=== PATIENT | female | born 1980 | race Caucasian/White ===

== ENCOUNTER → 2016-10-30 | Outpatient (CLI) | payer BC | END | disposition home or self-care (01) | LOC: C.PAPS 10:21 | PROVIDERS: ATTEND Physician Assistant | DX: Z01.419 Encounter for gynecological examination (general) (routine) without abnormal findings (principal) ==

== ENCOUNTER 2023-02-26 05:33 | Inpatient (IN) ==
--- NOTE | 2023-02-20 12:46 | Anesthesiology Consultation ---
Date of Service February 20, 2023 Assessment & Plan (1) Encounter for pre-operative examination: Plan - Per auto transport driver on 02/20/2023: No known infectious disease contacts, current infectious disease symptoms in past 10 days or COVID positive test result in the past 90 days. Chart Review Chart Review: customer support engineer initiated History Surgery Operation Date: 02/26/23 07:30 Proposed Procedures p Section (Delivery of Baby Through Abdominal Incision) - Eva Abad MD, FACOG Height/Weight Height: 5 ft 4 in Weight: 69.853 kg Allergies Allergy/AdvReac Type Severity Reaction Status Date / Time Penicillins Allergy Unknown Unknown Verified 02/26/23 05:52 Medications Home Medications Medication Instructions Recorded Confirmed Last Taken prenat.vits,nikole,sfs-hsij-vwxxv 1 tab PO DAILY 08/09/22 02/26/23 02/25/23 08:00 aspirin 81 mg tablet 81 mg PO DAILY 02/26/23 02/26/23 02/25/23 08:00 docusate sodium 50 mg capsule 50 mg PO BID 02/26/23 02/26/23 02/25/23 08:00 Past Medical History Medical History History of asthma in her mid-20's, no current issues Regurgitation of food had been under control last year, 2021, but recently within last month or 2, it has been happening again Past Family History Family History Mother Anxiety Depression Glaucoma Asthma Thyroid disease Fibroid Aunt Malignant neoplasm of brain Aunt Breast cancer Maternal Aunt Breast cancer Paternal Grandfather No problems noted. Grandfather (Maternal) Myocardial infarction Father Hypertension Osteoarthritis Brother No problems noted. Sister Tumor pelvic mass Denies family history of Ovarian cancer Prostate cancer Colorectal cancer Past Surgical History Surgical History No history of previous surgery Social History Smoking Status: Never smoker Do You Dip or Chew Tobacco: No Hx Alcohol Use: Yes Alcohol type: beer, wine and hard liquor alcohol intake frequency: other Alcohol Intake Frequency Comment: not while ; twice weekly prior to Hx Substance Use: No substance use type: does not use Physical Exam Vital Signs Last Vital Signs Temp 37.6 C H 02/26/23 05:55 Pulse 74 02/26/23 05:55 Resp 18 02/26/23 05:55 BP 123/74 02/26/23 05:55 Testing Laboratory Results 02/26/23 05:42 Blood Type O Positive 02/26/23 05:48 Antibody Screen NEGATIVE 02/26/23 05:48
--- NOTE | 2023-02-25 16:57 | History & Physical Report ---
Date of Service February 25, 2023 Assessment & Plan (1) Supervision of elderly primigravida: (2) Placenta previa: Plan Plan . The risks of surgery were discussed with the patient including the risks of anesthesia, bleeding requiring transfusion, infection, poor wound healing, urinary retention, damage to surrounding structures including bowels, bladder, vessels, nerves and ureters that may require further surgery, hospitalization or intervention. The other risks of any surgery were discussed including heart attack, blood clots, stroke or . Discussed injury to the baby. Discussed increased risk of blood loss with c/s for previa. Discussed very remote possibility of hyster if cannot get bleeding under control. Many questions asked and answered to the best of my ability. History of Present Illness Chief Complaint: preesents for c/s for previa Primary Care Provider: Helen Diaz MD Patient is a 42yowf with iup at 37 0/7 weeks who presents for scheduled primary c/s for previa. Last us at 36 weeks notes that the placenta is posterior and touches the os but does not cover it. REcommendations is delivery between 36 0/7 and 37 6/7. Is scheduled for 37 0/7. Does not need steroids. complicated by ama 42yo. TEsting has been reassuring. The patient has had no bleeding and no contractions. nsts have been reactive. and Delivery Plans AMA>40@del *Anatomy Scan @ 20wks - complete * Echo 50-63ryc-HED 11/12/22 WNL *Growth scan @32wks *Weekly NST's @36 wks *Twice weekly NST @38wks *Weekly BRENNA's @38wks *Deliver by 40 wks Placenta Previa at anatomy - Placenta check at 32 weeks placenta continues to touch internal cervical os. recheck at 36wk - still previa, no bleeding C/S SCHEDULED FOR 02/26/[address] CRAIN AND DR. PISANO ASSIST OB Labs: Blood Type O Positive 08/12/22 Antibody Screen NEGATIVE 08/12/22 Hemoglobin 10.9 g/dl (12.0-16.0) L 12/25/22 Hematocrit 31.8 % (37.0-47.0) L 12/25/22 Mean Corpuscular Volume 92.0 fL (80.0-100.0) 08/12/22 Platelet Count 196 K/uL (130-400) 08/12/22 E Rubella IgG Antibody Immune (Immune) 08/12/22 Rapid Plasma Reagin Nonreactive (Nonreactive) 08/12/22 Hepatitis B Surface Antigen. NON-REACTIVE (NON-REACTIVE) 08/12/22 Hepatitis C Antibody (EIA) NON-REACTIVE (NON-REACTIVE) 08/12/22 HIV (1&2) Ag and Ab Confirmation NON-REACTIVE (NON-REACTIVE) 08/12/22 Glucose 1 Hour 50 gm Load 141 mg/dl (70-130) H 10/08/22 Maternal Serum Alpha Fetoprotein 37.2 ng/mL 10/08/22 OB Optional Labs: Chlamydia trachomatis RNA Not Detected (NotDetected) 08/12/22 Neisseria gonorrhoeae RNA Not Detected (NotDetected) 08/12/22 Alpha Fetoprotein Triple Screen SEE NOTE 10/08/22 Labs Reviewed: cf/sma-negative--mln cfdna-low risk--mln afp neg--akh Allergies Allergy/AdvReac Type Severity Reaction Status Date / Time Penicillins Allergy Unknown Unknown Verified 02/25/23 13:02 Home Medications Medication Instructions Recorded Confirmed Type meclizine 25 mg tablet 25 mg PO TID PRN dizziness #21 tabs 03/13/21 02/25/23 Rx propranolol 10 mg tablet 10 mg PO ONCE PRN stage fright #20 04/13/21 02/25/23 Rx tabs prenat.vits,nikole,ytv-lrbv-nogjj 1 tab PO DAILY 08/09/22 02/25/23 History ondansetron 4 mg disintegrating 4 mg PO Q8H PRN nausea and 09/04/22 02/25/23 Rx tablet vomiting #30 tabs Patient History Medical History History of asthma in her mid-20's, no current issues Regurgitation of food had been under control last year, 2021, but recently within last month or 2, it has been happening again Surgical History No history of previous surgery Family History Mother Anxiety Depression Glaucoma Asthma Thyroid disease Fibroid Aunt Malignant neoplasm of brain Aunt Breast cancer Maternal Aunt Breast cancer Paternal Grandfather No problems noted. Grandfather (Maternal) Myocardial infarction Father Hypertension Osteoarthritis Brother No problems noted. Sister Tumor pelvic mass Denies family history of Ovarian cancer Prostate cancer Colorectal cancer Social History Smoking Status: Never smoker Second Hand Exposure: No; Do You Dip or Chew Tobacco: No; Hx Alcohol Use: Yes Alcohol type: beer, wine and hard liquor Alcohol Intake Frequency: 2-3 x/Week Hx Substance Use: No Preferred Language: Honduran Communication Ability: Effective Visual Impairment: No Limitations Hearing Ability: Normal Training Specialist Required: No Beliefs That Will Affect Care: None marital status: marital status details: Daniel (36) [phone] Current Living Situation: Spouse Current Living Situation Comment: lives with spouse, 1 snail current occupational status: employed 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
[~2023-02-26 05:33] MED LIST: ALLERGY Noted to ORDERED Medication SCH
[2023-02-26] MEDS ORDERED: SODIUM CHLORIDE 0.9% 250 ML IV PRN (05:48)
[2023-02-26] MEDS ORDERED: ceFAZolin 2000MG 2,000 MG/15 ML SYR IV SCH (06:00)
[2023-02-26] MEDS ORDERED: LACTATED RINGER'S 1,000 ML IV SCH ×2 (06:00→08:30)
[2023-02-26] MEDS ORDERED: CITRIC ACID/SODIUM CITRATE 15 ML UDC PO SCH (06:00)
[2023-02-26 06:09] LABS: Basophils # (auto) 0.02 K/uL (0-0.2); Basophils % (auto) 0.3 %; Eosinophils # (auto) 0.08 K/uL (0-0.50); Eosinophils % (auto) 1.1 %; Hematocrit (blood only) 35.1 % (37.0-47.0); Hemoglobin 12.2 g/dl (12.0-16.0); Immature Granulocytes # (auto) 0.09 K/uL (0.01-0.20); Immature Granulocytes % (auto) 1.3 %; Lymphocytes # (auto) 2.28 K/uL (1.2-3.4); Lymphocytes % (auto) 31.8 %; Mean Corpuscular Hemoglobin 33.5 pg (25.0-34.0); Mean Corpuscular Hgb Conc 34.8 g/dL (32.0-36.0); Mean Corpuscular Volume 96.4 fL (80.0-100.0); Mean Platelet Volume 12.3 fL (9.4-12.4); Monocytes # (auto) 0.51 K/uL (0.11-0.59); Monocytes % (auto) 7.1 %; Neutrophils # (auto) 4.19 K/uL (1.40-6.50); Neutrophils % (auto) 58.4 %; Platelet Count 159 K/uL (130-400); RDW Coefficient of Variation 14.1 % (11.5-14.5); RDW Standard Deviation 49.4 fL (36.4-46.3); Red Blood Count 3.64 M/uL (4.20-5.40); White Blood Count 7.17 K/ul (4.8-10.8)
[2023-02-26] MEDS ORDERED: MoRPHine SULFATE PF 1 MG/ML 10 ML AMP/VIAL ONE (07:10)
[2023-02-26] MEDS ORDERED: NALBUPHINE HCL INJ 10 MG/ML AMP IV PRN (07:34)
[2023-02-26] MEDS ORDERED: diphenhydrAMINE 50 MG/ML VIAL IV PRN (07:34)
[2023-02-26] MEDS ORDERED: ePHEDrine sulfate 50 MG/ML AMP IV PRN (07:34)
[2023-02-26] MEDS ORDERED: LACTATED RINGER'S 500 ML IV PRN (07:34)
[2023-02-26] MEDS ORDERED: MoRPHine SULFATE PF 1 MG/ML 10 ML AMP/VIAL INT SPINAL ONE (07:34)
[2023-02-26] MEDS ORDERED: NALOXONE HCL 0.08 MG in SYRINGE 1.8 ML IV PRN (07:34)
[2023-02-26] MEDS ORDERED: NALOXONE HCL 0.4 MG/1 ML VIAL/CARP IV PRN (07:34)
[2023-02-26] MEDS ORDERED: MoRPHine SULFATE 2 MG/ML CARP IV PRN (07:34)
[2023-02-26] MEDS ORDERED: NALOXONE HCL 1 MG in SODIUM CHLORIDE 0.9% 1000ML 1,000 ML IV PRN (07:34)
[2023-02-26] MEDS ORDERED: PROMETHAZINE HCL 12.5 MG in SODIUM CHLORIDE 0.9% 50 ML IV PRN (07:34)
[2023-02-26] MEDS ORDERED: ONDANSETRON INJ 2 MG/ML 2 ML VIAL IV PRN ×2 (07:34→08:29)
[2023-02-26] MEDS ORDERED: SODIUM CHLORIDE 0.9% 1000ML 1,000 ML IV SCH (07:45)
[2023-02-26] MEDS ORDERED: NO NARCOTICS OR SEDATIVES SCH (07:45)
[2023-02-26] MEDS ORDERED: DC INTRASPINAL MORPHINE SCH (07:45)
[2023-02-26] MEDS ORDERED: ONDANSETRON INJ 2 MG/ML 2 ML VIAL ONE (08:03)
[2023-02-26] MEDS ORDERED: PHENYLEPHRINE 100MCG/ML 5ML SYR ONE (08:03)
[2023-02-26] MEDS ORDERED: METOCLOPRAMIDE HCL INJ 5 MG/ML 2 ML VIAL ONE (08:03)
[2023-02-26] MEDS ORDERED: OXYTOCIN 10 UNITS/ML VIAL ONE (08:03)
[2023-02-26] MEDS ORDERED: ePHEDrine sulfate 50 MG/ML SYR ONE (08:03)
[2023-02-26] MEDS ORDERED: SODIUM CHLORIDE 0.9% PF INJ 10 ML VIAL ONE (08:04)
[2023-02-26] MEDS ORDERED: ePHEDrine sulfate 50 MG/ML AMP ONE (08:04)
[2023-02-26] MEDS ORDERED: MIDAZOLAM HCL 1 MG/ML 2ML VIAL ONE (08:10)
[2023-02-26] MEDS ORDERED: DIPHTHERIA/TETANUS/PERTUSSIS Vaccine (Tdap, Age 7+yrs) 0.5mL SYR/VL IM ONE (08:29)
[2023-02-26] MEDS ORDERED: MAGNESIUM HYDROXIDE SUSP 30 ML UDC PO PRN (08:29)
[2023-02-26] MEDS ORDERED: HYDROCORTISONE ACETATE 25 MG SUPP PR PRN (08:29)
[2023-02-26] MEDS ORDERED: SENNA 8.6 MG TAB PO PRN (08:29)
[2023-02-26] MEDS ORDERED: BENZOCAINE 20% SPRY 85 APPLN/85 GM CAN EXT PRN (08:29)
--- NOTE | 2023-02-26 08:49 | Operative Report ---
PG Post Operative Report Pre & Post Diagnosis Operation Date: 02/26/23 07:30 Pre-Op Diagnosis: Intrauterine at 37 Weeks; Posterior Placenta Previa Post-Op Diagnosis: Same; Delivery of a live male child at 0806 I identified the patient and participated in the time-out.: Yes Procedure Operation Date: 02/26/23 07:30 Actual Procedures p Primary low transverse Section (Delivery of Baby Through Abdominal Incision) - Eva Abad MD, FACOG Surgeon Eva Abad MD, FACOG Extractor Puller Dr. Powell Estimated Blood Loss 600 Findings Consistent with Post-Op Diagnosis viable male in cephalic presentation, immediate cry, no nuchal cord. nl utx/tubes/ovs noted. Placental low and posterior. REmoved easily. Fluids 2300cc uop 125cc, clear Specimens placenta, cord blood Drains flores Anesthesia Type Spinal Complications none Disposition Accompanied Patient To Recovery: Yes Disposition: L&D Indications Patient is [id number] with iup at 37 0/7 weeks with posterior placenta previa. the tip of the placenta is touching the os by ultrasound. Description of Procedure The patient was taken to the operating room where she was identified verbally and by bracelet. She was seated on the operating table where a spinal anesthetic was placed by anesthesia. She was then placed in the supine position with a leftward tilt. A Flores catheter was placed sterilely. the patient was prepped and draped in a normal standard fashion. the anesthetic was tested and found to be adequate. A time-out was held, identifying correct patient, procedure, positioning and preoperative antibiotics. There were no concerns. A Pfannenstiel skin incision was made with a knife and taken down to the underlying layer of fascia with the knife and Bovie electrocautery. Bleeding was attended to with the Bovie. The fascia was incised in the midline with the knife and taken out laterally with scissors. The superior edge of the fascial incision was grasped, elevated and the underlying layer of rectus muscle was taken off bluntly and with scissors. In a similar fashion, the inferior edge of the fascial incision was grasped, elevated and the underlying layer of rectus muscle was taken off bluntly and with scissors. The muscles were bluntly in the midline. The peritoneum was entered bluntly. The incision was then stretched. The bladder blade was placed. The vesicouterine peritoneum was identified, entered with scissors and taken out laterally with scissors. The bladder flap was created digitally A hysterotomy incision was scored with a knife and the incision was stretched superiorly and inferiorly with the willow machine operator's fingers. The operators hand was placed into the incision and the head was delivered atraumatically. No nuchal cord. The nose and mouth were bulb suctioned. the rest of the infant was then delivered without difficulty. The nose and mouth were again bulb suctioned. The cord was clamped and cut and the was then handed off to the awaiting junior sales assistant for dryi ng and attention. Cord blood and segment were obtained. The placenta was partially expressed and partially Manually extracted. It was removed intact. the placental bed was examined and bleeding was controlled. The uterus was exteriorized and cleared of all clot and debris with moistened laparotomy sponges. The hysterotomy incision was repaired in two layers, the first in a running locked layer, the second in an imbricating layer. Hemostasis was noted to be good. Posterior cul-de-sac was irrigated and cleared of all clot and debris. The hysterotomy incision was again inspected and found to be hemostatic. the uterus was reinteriorized. Hysterotomy incision was again inspected and found to be hemostatic. Rectus muscles were reapproximated with several interrupted stitches of 0 Vicryl. The fascia was then reapproximated with 0 Vicryl starting at the edges and meeting in the midline. The subcuticular tissues were copiously irrigated and bleeding was attended to with cautery. The skin was then closed with 4-0 Vicryl in a subcuticular fashion. All sponge, lap and needle count correct x 2. the patient was taken to recovery in stable condition. I attest to the content of the Intraoperative Record and any orders documented therein. Any exceptions are noted below. OB Procedure Charges 29101
[2023-02-26 08:54] LABS: Base Excess Cord Arterial Bld -2.6 mEq/L (-9-1.8); CO2 Cord Arterial Blood 52 mmHg (39.1-73.5); HCO3 Cord Arterial Blood 25 mmol/L (19.7-28.5); Oxygen Sat Cord Arterial Blood < 60.0 % (<60); PO2 Cord Arterial Blood 21 mmHg (4.1-31.7); pH Cord Arterial Blood 7.29 (7.1-7.38)
[2023-02-26 08:56] LABS: Base Excess Cord Venous Blood -1.9 mEq/L (-7.7-1.9); Cord Venous Blood HCO3 26 mmol/L (18.4-26.8); Cord Venous Blood PCO2 52 mmHg (30.4-57.2); Cord Venous Blood PO2 15 mmHg (14.1-43.3); O2 Saturation Cord Venous Bld < 60.0 % (<68)
[2023-02-26] MEDS: KETOROLAC 30 MG/ML VIAL IV PRN ×3 (10:03→22:33)
[2023-02-26] MEDS: OXYTOCIN 20 UNITS in LACTATED RINGER'S 1,000 ML IV SCH ×2 (11:12→19:26)
--- NOTE | 2023-02-26 12:00 | Anesthesiology Progress Note ---
Date of Service February 26, 2023 Anesthesia Post Procedure Vital Signs Vital Signs: Temp Pulse Resp BP Pulse Ox 02/26/23 10:38 37.2 C 20 02/26/23 10:08 20 02/26/23 09:38 20 02/26/23 09:28 20 02/26/23 09:18 20 02/26/23 09:08 20 02/26/23 08:58 20 02/26/23 08:48 20 02/26/23 08:38 36.9 C 20 02/26/23 05:55 37.6 C H 74 18 123/74 02/26/23 11:40 75 100 02/26/23 11:38 61 136/61 02/26/23 11:35 64 100 02/26/23 11:30 82 100 02/26/23 11:28 68 132/86 02/26/23 11:25 75 96 02/26/23 11:20 69 100 02/26/23 11:17 62 113/57 L 02/26/23 11:15 88 100 02/26/23 11:10 67 99 02/26/23 11:08 62 95/54 L 02/26/23 11:05 70 99 02/26/23 11:00 64 100 02/26/23 10:58 64 116/60 02/26/23 10:55 78 96 02/26/23 10:56 76 93 02/26/23 10:50 85 100 02/26/23 10:48 101 H 110/69 02/26/23 10:45 62 99 02/26/23 10:40 62 100 02/26/23 10:38 80 115/60 02/26/23 10:35 65 100 02/26/23 10:30 77 100 02/26/23 10:28 115 H 124/68 02/26/23 10:25 63 99 02/26/23 10:20 65 100 02/26/23 10:18 93 H 123/58 L 02/26/23 10:15 69 100 02/26/23 10:10 82 100 02/26/23 10:08 57 L 133/58 L 02/26/23 10:05 62 100 02/26/23 10:00 61 100 02/26/23 09:58 99 H 129/70 02/26/23 09:55 59 L 98 02/26/23 09:50 77 100 02/26/23 09:48 61 130/59 L 02/26/23 09:45 70 100 02/26/23 09:40 95 H 99 02/26/23 09:38 68 123/58 L 02/26/23 09:35 74 99 02/26/23 09:30 89 99 02/26/23 09:28 63 120/64 02/26/23 09:25 98 H 100 02/26/23 09:20 72 100 02/26/23 09:18 63 131/74 02/26/23 09:15 77 100 02/26/23 09:10 74 100 02/26/23 09:08 75 89 L 02/26/23 09:05 69 100 02/26/23 09:04 71 120/58 L 02/26/23 09:00 71 100 02/26/23 08:55 67 100 02/26/23 08:53 60 116/65 02/26/23 08:50 63 99 02/26/23 08:45 62 99 02/26/23 08:44 64 92 02/26/23 08:40 66 100 02/26/23 08:38 60 115/59 L 02/26/23 05:49 74 123/74 Transfer of Care Handoff Completed per policy Notes Mental Status: alert / awake / arousable Patient Amnestic to Procedure: Yes Nausea / Vomiting: adequately controlled Pain: adequately controlled Airway Patency, RR, SpO2: stable & adequate BP & HR: stable & adequate Hydration State: stable & adequate Neuraxial Anesthesia: was administered and sensory block is resolving Anesthetic Complications: no major complications apparent
[2023-02-26] MEDS: SIMETHICONE 80 MG CHEW PO SCH ×3 (14:20→20:41)
[2023-02-26] MEDS: DOCUSATE SODIUM 100 MG CAP PO SCH (20:41)
[2023-02-27] MEDS ORDERED: MEPERIDINE HCL 50 MG/ML CARP IV PRN (02:30)
[2023-02-27] MEDS ORDERED: PROMETHAZINE HCL 25 MG in SODIUM CHLORIDE 0.9% 50 ML IV PRN (02:30)
[2023-02-27] MEDS ORDERED: diphenhydrAMINE Capsule 25 MG CAP PO PRN (02:30)
[2023-02-27] MEDS ORDERED: diphenhydrAMINE 50 MG/ML VIAL IV PRN (02:30)
[2023-02-27] MEDS ORDERED: KETOROLAC 30 MG/ML VIAL IV PRN (02:30)
[2023-02-27] MEDS: oxyCODONE/ACETAMINOPHEN 5mg/325mg TAB PO PRN ×5 (03:42→21:14)
[2023-02-27] MEDS: IBUPROFEN 600 MG TAB PO PRN ×5 (03:43→21:14)
[2023-02-27 06:45] LABS: Basophils # (auto) 0.03 K/uL (0.00-0.20); Basophils % (auto) 0.4 %; Eosinophils # (auto) 0.06 K/uL (0.00-0.50); Eosinophils % (auto) 0.8 %; Hematocrit (blood only) 30.2 % (37.0-47.0); Hemoglobin 10.4 g/dl (12.0-16.0); Immature Granulocytes # (auto) 0.07 K/uL (0.01-0.20); Lymphocytes # (auto) 1.57 K/uL (1.20-3.40); Lymphocytes % (auto) 21.3 %; Mean Corpuscular Hemoglobin 33.5 pg (25.0-34.0); Mean Corpuscular Hgb Conc 34.4 g/dL (32.0-36.0); Mean Corpuscular Volume 97.4 fL (80.0-100.0); Monocytes # (auto) 0.47 K/uL (0.11-0.59); Monocytes % (auto) 6.4 %; Neutrophils # (auto) 5.16 K/uL (1.40-6.50); Neutrophils % (auto) 70.1 %; Platelet Count 123 K/uL (130-400); RDW Coefficient of Variation 14.2 % (11.5-14.5); RDW Standard Deviation 50.3 fL (36.4-46.3); White Blood Count 7.36 K/ul (4.8-10.8)
--- NOTE | 2023-02-27 06:49 | Obstetrical Progress Note ---
Date of Service February 27, 2023 Assessment & Plan (1) S/P section: Plan: encourage ambulation pain control Admission and Anticipated Discharge Date Admission Date: February 26, 2023 Supervising Physician Co-Signing Physician Notes Resident Physician Supervision Note: I interviewed and examined the patient. Discussed with Dr. Akins and agree with findings and plan as documented in the note. Any exceptions or clarifications are listed here: pod#1. Doing well. Encourage ambulation, flores out and void, oral pain meds. Documented By: Eva Abad MD, FACOG Subjective 42yo without significant PMHx post day 1 Ambulation: ambulating normally Voiding: not yet voiding/stooling Passing Gas:: without flatus, feels bowels moving Diet Tolerance:: regular diet Lochia:: Small Feeding Type:: breast feeding Current Pain Level: moderate Resting comfortably, breast feeding this morning. Denies BATISTA, CP, SOB, N/V/D Some LE swelling, without pain Review of Systems Review of Systems: reviewed, per hpi Physical Exam Physical Exam: General: patient resting comfortably, NAD, non-toxic in appearance, AA&O x 4, answers questions appropriately. Skin: warm, dry, intact HEENT: NC/AT, anicteric sclera, conjunctiva without injection, moist mucus membranes. Heart: +S1/S2, regular, no m/r/g Lungs: equal air entry bilaterally, no rales/rhonchi/wheezes Abd: +BS, soft, NT/ND, uterine fundus firm, cesarian incision C/D/I Ext: warm, no clubbing/cyanosis or edema, Anette's neg Neuro: nonfocal, patient AA&O x 4, speech intact, no facial droop, moving all extremities on command. Results & Data Vital Signs (Past 12 Hours) Vital Signs Temp Pulse Resp BP Pulse Ox O2 Del Method 02/27/23 03:25 37.0 C 71 16 106/64 98 Room Air 02/27/23 01:31 16 96 02/27/23 00:00 16 98 02/26/23 23:20 17 97 02/27/23 00:00 36.8 C 55 L 16 126/76 98 Room Air 02/26/23 22:25 16 98 02/26/23 21:30 16 98 02/26/23 20:30 16 97 02/26/23 20:30 37.5 C 61 16 106/67 97 Room Air 02/26/23 19:00 20 96 Laboratory Results 02/27/23 02/26/23 02/26/23 Range/Units 06:22 08:06 08:06 WBC 7.36 (4.8-10.8) K/ul RBC 3.10 L (4.20-5.40) M/uL Hgb 10.4 L (12.0-16.0) g/dl Hct 30.2 L (37.0-47.0) % MCV 97.4 (80.0-100.0) fL MCH 33.5 (25.0-34.0) pg MCHC 34.4 (32.0-36.0) g/dL RDW Std Deviation 50.3 H (36.4-46.3) fL RDW Coeff of Pauline 14.2 (11.5-14.5) % Plt Count 123 L (130-400) K/uL MPV 12.0 (9.4-12.4) fL Immature Gran % (Auto) 1.0 % Neut % (Auto) 70.1 % Lymph % (Auto) 21.3 % [place] % (Auto) 6.4 % Eos % (Auto) 0.8 % Baso % (Auto) 0.4 % Neut # (Auto) 5.16 (1.40-6.50) K/uL Lymph # (Auto) 1.57 (1.20-3.40) K/uL [place] # (Auto) 0.47 (0.11-0.59) K/uL Eos # (Auto) 0.06 (0.00-0.50) K/uL Baso # (Auto) 0.03 (0.00-0.20) K/uL Immature Gran # (Auto) 0.07 (0.01-0.20) K/uL Cord ABG pH 7.29 (7.1-7.38) Cord ABG pCO2 52 (39.1-73.5) mmHg Cord ABG pO2 21 (4.1-31.7) mmHg Cord ABG HCO3 25 (19.7-28.5) mmol/L Cord ABG Base Excess -2.6 (-9-1.8) mEq/L Cord ABG O2 Sat < 60.0 (<60) % Cord VBG pH 7.30 (7.20-7.44) Cord VBG pCO2 52 (30.4-57.2) mmHg Cord VBG pO2 15 (14.1-43.3) mmHg Cord VBG HCO3 26 (18.4-26.8) mmol/L Cord VBG Base Excess -1.9 (-7.7-1.9) mEq/L Cord VBG O2 Sat < 60.0 (<68) % Blood Gas Comments LEDBETTER LEDBETTER Blood Type Antibody Screen 02/26/23 Range/Units 05:48 WBC (4.8-10.8) K/ul RBC (4.20-5.40) M/uL Hgb (12.0-16.0) g/dl Hct (37.0-47.0) % MCV (80.0-100.0) fL MCH (25.0-34.0) pg MCHC (32.0-36.0) g/dL RDW Std Deviation (36.4-46.3) fL RDW Coeff of Pauline (11.5-14.5) % Plt Count (130-400) K/uL MPV (9.4-12.4) fL Immature Gran % (Auto) % Neut % (Auto) % Lymph % (Auto) % [place] % (Auto) % Eos % (Auto) % Baso % (Auto) % Neut # (Auto) (1.40-6.50) K/uL Lymph # (Auto) (1.20-3.40) K/uL [place] # (Auto) (0.11-0.59) K/uL Eos # (Auto) (0.00-0.50) K/uL Baso # (Auto) (0.00-0.20) K/uL Immature Gran # (Auto) (0.01-0.20) K/uL Cord ABG pH (7.1-7.38) Cord ABG pCO2 (39.1-73.5) mmHg Cord ABG pO2 (4.1-31.7) mmHg Cord ABG HCO3 (19.7-28.5) mmol/L Cord ABG Base Excess (-9-1.8) mEq/L Cord ABG O2 Sat (<60) % Cord VBG pH (7.20-7.44) Cord VBG pCO2 (30.4-57.2) mmHg Cord VBG pO2 (14.1-43.3) mmHg Cord VBG HCO3 (18.4-26.8) mmol/L Cord VBG Base Excess (-7.7-1.9) mEq/L Cord VBG O2 Sat (<68) % Blood Gas Comments Blood Type O Positive Antibody Screen NEGATIVE Resident Activity Tracking Resident Involvement: Resident Care Provided Care Provided: Adult Hospital Medicine
[2023-02-27] MEDS: PRENATAL VITAMIN 1 TAB PO SCH (07:48)
[2023-02-27] MEDS: DOCUSATE SODIUM 100 MG CAP PO SCH ×2 (07:49→21:12)
[2023-02-27] MEDS: FERROUS SULFATE 325 MG TAB PO SCH (07:49)
[2023-02-27] MEDS: SIMETHICONE 80 MG CHEW PO SCH ×4 (07:50→21:12)
[2023-02-27] MEDS ORDERED: bisacodyL 5 MG TABEC PO SCH (20:00)
[2023-02-28] MEDS: IBUPROFEN 600 MG TAB PO PRN ×4 (02:07→19:58)
[2023-02-28] MEDS: oxyCODONE/ACETAMINOPHEN 5mg/325mg TAB PO PRN ×4 (02:08→19:59)
--- NOTE | 2023-02-28 06:17 | Obstetrical Progress Note ---
Date of Service February 28, 2023 Assessment & Plan (1) S/P section: Plan: encourage ambulation pain control Admission and Anticipated Discharge Date Admission Date: February 26, 2023 Supervising Physician Co-Signing Physician Notes Resident Physician Supervision Note: I interviewed and examined the patient. Discussed with Dr. Akins and agree with findings and plan as documented in the note. Any exceptions or clarifications are listed here: [ ] Documented By: Susi Andrews MD, FACOG Subjective 42yo without significant PMHx post day 2 Ambulation: ambulating normally Voiding: voiding normally Passing Gas:: yes Diet Tolerance:: regular diet Lochia:: Small Feeding Type:: breast feeding with some difficulty Current Pain Level: minimal Resting comfortably this AM Denies BATISTA, CP, SOB, N/V/D, LE swelling Review of Systems Review of Systems: reviewed, per hpi Physical Exam Physical Exam: General: patient resting comfortably, NAD, non-toxic in appearance, AA&O x 4, answers questions appropriately and follows commands. Skin: warm, dry, intact HEENT: NC/AT, anicteric sclera, conjunctiva without injection, moist mucus membranes Heart: +S1/S2, regular, no m/r/g Lungs: equal air entry bilaterally, no rales/rhonchi/wheezes Abd: +BS, soft, NT/ND, uterine fundus firm, ceasarean incision C/D/I Ext: warm, no clubbing/cyanosis or edema, Anette's neg, Neuro: nonfocal, patient AA&O x 4, speech intact, no facial droop, moving all e xtremities on command. Results & Data Vital Signs (Past 12 Hours) Vital Signs Temp Pulse Resp BP 02/27/23 23:15 36.7 C 67 18 117/67 02/27/23 20:00 36.6 C 65 18 125/72 Resident Activity Tracking Resident Involvement: Resident Care Provided Care Provided: Adult Hospital Medicine
[2023-02-28 07:19] LABS: Hematocrit (blood only) 31.5 % (37.0-47.0); Hemoglobin 10.7 g/dl (12.0-16.0)
[2023-02-28] MEDS ORDERED: bisacodyL 10 MG SUPP PR PRN (08:30)
[2023-02-28] MEDS: FERROUS SULFATE 325 MG TAB PO SCH (09:25)
[2023-02-28] MEDS: DOCUSATE SODIUM 100 MG CAP PO SCH ×2 (09:25→19:59)
[2023-02-28] MEDS: SIMETHICONE 80 MG CHEW PO SCH ×4 (09:25→20:00)
[2023-02-28] MEDS: PRENATAL VITAMIN 1 TAB PO SCH (09:25)
[2023-03-01] MEDS: oxyCODONE/ACETAMINOPHEN 5mg/325mg TAB PO PRN ×3 (00:13→15:08)
[2023-03-01] MEDS: IBUPROFEN 600 MG TAB PO PRN ×3 (00:14→15:09)
--- NOTE | 2023-03-01 06:45 | Obstetrical Progress Note ---
Date of Service March 01, 2023 Assessment & Plan (1) S/P section: Plan: encourage ambulation pain control Admission and Anticipated Discharge Date Admission Date: February 26, 2023 Supervising Physician Co-Signing Physician Notes Resident Physician Supervision Note: I was present with Dr. Akins during the history and exam. I discussed the case with the resident and agree with the findings and plan as documented in the note. Any exceptions or clarifications are listed here: [None] Documented By: Kym Muhammad MD, FACOG Subjective 42yo without significant PMHx post day 3 Ambulation: ambulating normally Voiding: voiding normally Passing Gas:: yes Diet Tolerance:: regular diet Lochia:: Small Feeding Type:: breast feeding Current Pain Level: minimal Resting comfortably this AM Denies BATISTA, CP, SOB, N/V/D, LE swelling Review of Systems Review of Systems: reviewed, per hpi Physical Exam Physical Exam: General: patient resting comfortably, NAD, non-toxic in appearance, AA&O x 4, answers questions appropriately and follows commands. Skin: warm, dry, intact HEENT: NC/AT, anicteric sclera, conjunctiva without injection, moist mucus membranes Heart: +S1/S2, regular, no m/r/g Lungs: equal air entry bilaterally, no rales/rhonchi/wheezes Abd: +BS, soft, NT/ND, uterine fundus firm, caesarean incision C/D/I Ext: warm, no clubbing/cyanosis or edema, Anette's neg, Neuro: nonfocal, patient AA&O x 4, speech intact, no facial droop, moving all extremities on command. Results & Data Vital Signs (Past 12 Hours) Vital Signs Temp Pulse Resp BP Pulse Ox O2 Del Method 02/28/23 23:25 36.9 C 64 16 101/66 97 Room Air 02/28/23 20:15 36.9 C 71 18 125/81 99 Room Air
[2023-03-01] MEDS: DOCUSATE SODIUM 100 MG CAP PO SCH (07:59)
[2023-03-01] MEDS: FERROUS SULFATE 325 MG TAB PO SCH (07:59)
[2023-03-01] MEDS: SIMETHICONE 80 MG CHEW PO SCH (07:59)
[2023-03-01] MEDS: PRENATAL VITAMIN 1 TAB PO SCH (07:59)
--- NOTE | 2023-03-04 07:38 | Discharge Summary ---
Date of Service March 04, 2023 Admission HPI Per Admitting Provider Patient is a 42yowf with iup at 37 0/7 weeks who presents for scheduled primary c/s for previa. Last us at 36 weeks notes that the placenta is posterior and touches the os but does not cover it. REcommendations is delivery between 36 0/7 and 37 6/7. Is scheduled for 37 0/7. Does not need steroids. complicated by ama 42yo. TEsting has been reassuring. The patient has had no bleeding and no contractions. nsts have been reactive. and Delivery Plans AMA>40@del *Anatomy Scan @ 20wks - complete * Echo [id number]-HPN 11/12/22 WNL *Growth scan @32wks *Weekly NST's @36 wks *Twice weekly NST @38wks *Weekly BRENNA's @38wks *Deliver by 40 wks Placenta Previa at anatomy - Placenta check at 32 weeks placenta continues to touch internal cervical os. recheck at 36wk - still previa, no bleeding C/S SCHEDULED FOR 02/26/[address] CRAIN AND DR. PISANO ASSIST OB Labs: Blood Type O Positive 08/12/22 Antibody Screen NEGATIVE 08/12/22 Hemoglobin 10.9 g/dl (12.0-16.0) L 12/25/22 Hematocrit 31.8 % (37.0-47.0) L 12/25/22 Mean Corpuscular Volume 92.0 fL (80.0-100.0) 08/12/22 Platelet Count 196 K/uL (130-400) 08/12/22 Rubella IgG Antibody Immune (Immune) 08/12/22 Rapid Plasma Reagin Nonreactive (Nonreactive) 08/12/22 Hepatitis B Surface Antigen. NON-REACTIVE (NON-REACTIVE) 08/12/22 Hepatitis C Antibody (EIA) NON-REACTIVE (NON-REACTIVE) 08/12/22 HIV (1&2) Ag and Ab Confirmation NON-REACTIVE (NON-REACTIVE) 08/12/22 Glucose 1 Hour 50 gm Load 141 mg/dl (70-130) H 10/08/22 Maternal Serum Alpha Fetoprotein 37.2 ng/mL 10/08/22 OB Optional Labs: Chlamydia trachomatis RNA Not Detected (NotDetected) 08/12/22 Neisseria gonorrhoeae RNA Not Detected (NotDetected) 08/12/22 Alpha Fetoprotein Triple Screen SEE NOTE 10/08/22 Labs Reviewed: cf/sma-negative--mln cfdna-low risk--mln afp neg--[facility] Discharge Data Consultations 02/26/23 05:46 Consult Anesthesiology Stat Procedures Performed Operation Date: 02/26/23 07:30 Actual Procedures p Section (Delivery of Baby Through Abdominal Incision) - Eva Crain MD, [facility] Course (1) S/P section: (2) Supervision of elderly primigravida: (3) Placenta previa: Plan Patient was admitted and underwent a primary low transverse without difficulty--EBL--600cc, viable male infant. Placenta was low lying and posterior. The patient's postop course was uncomplicated--tolerated regular diet, voided after removal of her flores cath, tolerated oral pain meds, ambulated without difficulty. She was d/c home on pod #3. d/c h/h was 10.7/31.5. She will f/u in 6 weeks for a check. Coding Level of Care Code None Diagnoses S/P section Z98.891 Supervision of elderly primigravida O09.519 Placenta previa O44.00
== END 2023-03-01 17:00 | disposition home or self-care (01) | DRG 788 ==
LOC: 4S1 05:33 → EDSTATUS 07:30 → 4E2 12:12